=== PATIENT | male | born 1990 | race Caucasian/White ===

== ENCOUNTER 2017-11-07 10:13 | Emergency (ER) | payer OTHER ==
[~2017-11-07] VITALS: Wt 110.7 kg
[~2017-11-07 10:13] MED LIST: ALPHAGAN 10 ML10 ML; ALPHAGAN 10 ML10 ML OP; ASPIRIN81 MG PO; BALANCE B-501 TA1; BROMELAIN500 MG PO; CINNAMON500 MG PO; CITRACAL + D 311 TAB PO; COQ(10)1010 MG PO; CRANBERRY1 CAP; FLAXSEED OIL1000 MG; GLUCOSAMINE, CH1 TAB PO; GLYBURIDE5 MG PO; JANUMET 1000 MG1 TA1 PO; LUMIGAN 2.5 ML2.5 M1 OP; LUTEIN20 MG PO; MICARDIS20 MG PO; MURO OPH; SYNTHROID,LEVO50 MCG PO; TRIPLE OMEGA PO; VITAMIN D5000 I2; XANAX0.5 MG PO; [UNRECOGNIZED DRUG - OTHER] OPH; [UNRECOGNIZED DRUG - OTHER] PO
[2017-11-07 10:59] LABS: BASO # 0.1 10*3/uL (0.0-0.1); EOS # 0.3 10*3/uL (0.0-0.4); EOS % 2.8 % (1.0-4.0); HEMATOCRIT 49.6 % (42.0-52.0); HEMOGLOBIN 17.5 g/dl (14.0-18.0); LYMPH # 2.6 10*3/uL (1.3-4.4); LYMPH % 25.5 % (27.0-41.0); MEAN CELL VOLUME 87.5 fl (80.0-94.0); MEAN CORPUSCULAR HGB 30.9 pg (27.0-31.0); MEAN CORPUSCULAR HGB CONC 35.3 g/dl (33.0-37.0); MONO # 1.1 10*3/uL (0.1-1.0); MONO % 10.2 % (3.0-9.0); NEUT % 58.7 % (47.0-73.0); PLATELET COUNT AUTOMATED 229 10*3/uL (130-400); RED BLOOD COUNT 5.67 10*6/uL (4.50-5.90); RED CELL DISTRI WIDTH 12.4 % (0-14.5); WHITE BLOOD COUNT 10.3 10*3/uL (4.8-10.8)
[2017-11-07 11:07] LABS: BILIRUBIN NEGATIVE (NEGATIVE); BLOOD NEGATIVE (NEGATIVE); CLARITY CLEAR (CLEAR); COLOR YELLOW (YELLOW); GLUCOSE NEGATIVE (NEGATIVE); KETONE NEGATIVE (NEGATIVE); LEUKO ESTERASE NEGATIVE (NEGATIVE); NITRITE NEGATIVE (NEGATIVE); UROBILINOGEN 0.2 E.U./dl (0.2-1.0)
[2017-11-07 11:16] LABS: ALBUMIN 3.8 gm/dl (3.1-4.5); ALKALINE PHOSPHATASE 62 U/L (45-117); BUN 10 mg/dl (7-24); CHLORIDE 103 mmol/L (98-107); CREATININE 1.06 mg/dL (0.70-1.30); LIPASE 80 U/L (73-393); POTASSIUM 4.7 mmol/L (3.5-5.1); SGOT/AST 42 IU/L (3-35); SGPT/ALT 102 U/L (12-78); SODIUM 139 mmol/L (136-145); TOTAL PROTEIN 8.2 gm/dL (6.4-8.2); TROPONIN I < 0.015 ng/ml (<0.045)
[2017-11-07 11:16] LABS: EPITHELIAL CELLS 0-2; MUCOUS 1+; RBC 0-2 rbc/hpf (0-2)
[2017-11-07] MEDS ORDERED: PRILOSEC20 M1 PO (12:20)
== END 2017-11-07 12:54 | disposition home or self-care (01) ==
LOC: ED 10:13
PROVIDERS: Emergency Medicine
DX: R10.13 Epigastric pain (principal); R07.9 Chest pain, unspecified; R68.84 Jaw pain; Z88.1 Allergy status to other antibiotic agents

== ENCOUNTER 2018-01-14 06:53 | Emergency (ER) | payer OTHER ==
[~2018-01-14] VITALS: Ht 175.2 cm; Wt 99.8 kg
[~2018-01-14 06:53] MED LIST changes: +PRILOSEC20 M1 PO
[2018-01-14 08:20] LABS: MEAN CELL VOLUME 88.1 fl (80.0-94.0); MEAN CORPUSCULAR HGB 30.6 pg (27.0-31.0); MEAN CORPUSCULAR HGB CONC 34.7 g/dl (33.0-37.0); MEAN PLATELET VOLUME 10.5 fl (9.6-12.3); PLATELET COUNT AUTOMATED 238 10*3/uL (130-400); RED BLOOD COUNT 5.56 10*6/uL (4.50-5.90); RED CELL DISTRI WIDTH 12.5 % (0-14.5); WHITE BLOOD COUNT 13.5 10*3/uL (4.8-10.8)
[2018-01-14 08:37] LABS: ALBUMIN 3.8 gm/dl (3.1-4.5); ALKALINE PHOSPHATASE 59 U/L (45-117); BUN 12 mg/dl (7-24); CHLORIDE 104 mmol/L (98-107); POTASSIUM 4.3 mmol/L (3.5-5.1); SGOT/AST 28 IU/L (3-35); SGPT/ALT 57 U/L (12-78); SODIUM 140 mmol/L (136-145); TOTAL PROTEIN 7.5 gm/dL (6.4-8.2)
[2018-01-14 08:39] LABS: PLATELET SUFFICIENCY NORMAL (NORMAL); TOTAL CELLS COUNTED 100 #CELLS
[2018-01-14] MEDS ORDERED: ZOFRAN ODT4 MG SL (08:56)
[2018-01-14] MEDS ORDERED: IMODIUM A-D2 M2 PO (08:56)
== END 2018-01-14 08:58 | disposition home or self-care (01) ==
LOC: ED 06:53
PROVIDERS: Family Medicine
DX: K52.9 Noninfective gastroenteritis and colitis, unspecified (principal); K21.9 Gastro-esophageal reflux disease without esophagitis; Z79.899 Other long term (current) drug therapy; Z88.1 Allergy status to other antibiotic agents

== ENCOUNTER → 2019-11-30 | Outpatient (CLI) | payer OTHER ==
[~2019-11-30] MED LIST changes: +IMODIUM A-D2 M2 PO; +ZOFRAN ODT4 MG SL
[2019-11-30 15:02] LABS: BASO # 0.1 10*3/uL (0.0-0.1); BASO % 1.1 % (0.0-1.0); EOS # 0.6 10*3/uL (0.0-0.4); EOS % 4.9 % (1.0-4.0); HEMATOCRIT 52.7 % (42.0-52.0); HEMOGLOBIN 18.6 g/dl (14.0-18.0); LYMPH # 3.1 10*3/uL (1.3-4.4); MEAN CELL VOLUME 90.1 fl (80.0-94.0); MEAN CORPUSCULAR HGB 31.8 pg (27.0-31.0); MEAN CORPUSCULAR HGB CONC 35.3 g/dl (33.0-37.0); MEAN PLATELET VOLUME 10.8 fl (9.6-12.3); MONO # 1.1 10*3/uL (0.1-1.0); MONO % 9.2 % (3.0-9.0); NEUT # 6.8 10*3/uL (2.3-7.9); NEUT % 57.5 % (47.0-73.0); PLATELET COUNT AUTOMATED 242 10*3/uL (130-400); RED BLOOD COUNT 5.85 10*6/uL (4.50-5.90); RED CELL DISTRI WIDTH 12.7 % (0-14.5); RETICULOCYTE % 3.45 % (0.50-2.50); WHITE BLOOD COUNT 11.8 10*3/uL (4.8-10.8)
[2019-11-30 15:34] LABS: CLARITY CLEAR (CLEAR); COLOR YELLOW (YELLOW); GLUCOSE NEGATIVE (NEGATIVE)
[2019-11-30 15:35] LABS: BILIRUBIN NEGATIVE (NEGATIVE); BLOOD NEGATIVE (NEGATIVE); KETONE NEGATIVE (NEGATIVE); LEUKO ESTERASE NEGATIVE (NEGATIVE); NITRITE NEGATIVE (NEGATIVE); UROBILINOGEN 0.2 E.U./dl (0.2-1.0)
[2019-11-30 15:36] LABS: EPITHELIAL CELLS 0-2; RBC 0-2 rbc/hpf (0-2); WBC 0-2 wbc/hpf (0-5)
[2019-11-30 15:37] LABS: BACTERIA 1+; MUCOUS TRACE
[2019-11-30 15:53] LABS: ALBUMIN 3.9 gm/dl (3.1-4.5); CHLORIDE 106 mmol/L (98-107); POTASSIUM 3.7 mmol/L (3.5-5.1); SODIUM 140 mmol/L (136-145)
[2019-11-30 15:58] LABS: VITAMIN D, 25-HYDROXY 18.4 ng/mL (30-100)
[2019-11-30 15:59] LABS: FERRITIN 189.1 ng/mL (22.0-322.0)
[2019-11-30 16:07] LABS: ALKALINE PHOSPHATASE 68 U/L (45-117); BUN 9 mg/dl (7-24); CHOLESTEROL 137 mg/dL (<200); CREATININE 1.14 mg/dL (0.70-1.30); GAMMA GLUTAMYL TRANSPEPTIDASE 118 U/L (15-85); HDL CHOLESTEROL 46 mg/dl (40-60); IRON 117 ug/dL (65-175); LDL CHOLESTEROL 58 mg/dL (9-159); SGOT/AST 70 IU/L (3-35); SGPT/ALT 165 U/L (12-78); T3 UPTAKE 34 % (31-39); TOTAL IRON BINDING CAPACITY 315 ug/dl (250-450); TOTAL PROTEIN 7.8 gm/dL (6.4-8.2); TRIGLYCERIDES 166 mg/dl (<150); URIC ACID 7.7 mg/dL (3.5-7.2); VLDL CHOLESTEROL 33 mg/dL (6-40)
[2019-12-01 07:06] LABS: RHEUMATOID ARTHRITIS FACTOR <10.0 IU/mL (0.0-13.9)
[2019-12-01 13:06] LABS: ANTI-DSDNA ANTIBODIES 096339 <1 IU/mL (0-9)
== END | disposition home or self-care (01) ==
LOC: LAB 14:28
PROVIDERS: Family Medicine
DX: R79.89 Other specified abnormal findings of blood chemistry (principal); R53.83 Other fatigue; E55.9 Vitamin D deficiency, unspecified

== ENCOUNTER 2020-06-01 15:19 | Emergency (ER) | payer OTHER ==
[~2020-06-01] VITALS: Wt 113.4 kg
[2020-06-01] MEDS ORDERED: VIBRAMYCIN100 MG PO (15:43)
[2020-06-01] MEDS ORDERED: PREDNISONE20 M1 PO (15:43)
== END 2020-06-01 16:01 | disposition home or self-care (01) ==
LOC: ED 15:19
DX: L23.7 Allergic contact dermatitis due to plants, except food (principal); Z88.8 Allergy status to other drugs, medicaments and biological substances; Z79.899 Other long term (current) drug therapy